=== PATIENT | female | born 1955 | race Caucasian/White ===

== ENCOUNTER → 2020-12-07 | Day surgery (SDC) | payer MEDICARE ==
[~2020-12-07] MED LIST: CELEBREX **OUT100 MG PO; DAILY VALUE1 EACH PO; FERROUS SULFA PO; OMEPRAZOLE40 MG PO; PROZAC20 MG PO; SYNTHROID25 MCG PO; XANAX0.25 MG PO
[2020-12-07 11:25] LABS: ALBUMIN 3.4 g/dL (3.4-5.0); BILIRUBIN - TOTAL 0.3 mg/dL (0.2-1.0); BUN/CREAT RATIO (CALC) 24.7 RATIO; CREATININE 0.81 mg/dL (0.51-0.95); GLOBULIN (CALCULATION) 3.5 g/dL; POTASSIUM 4.1 mmol/L (3.5-5.1); TOTAL PROTEIN 6.9 g/dL (6.4-8.2)
[2020-12-07 11:29] LABS: HCT 34.7 % (37.0-47.0); HGB 11.5 g/dl (12.5-16.0); MCH 29.6 pg (25.0-31.0); MCHC 33.1 g/dL (32.0-36.0); MCV 89.4 fL (78.0-100.0); MPV 9.6 fL (6.0-9.5); RBC 3.88 M/uL (4.20-5.40); RDW 13.6 % (11.5-14.0); WBC 6.4 K/uL (4.0-10.5)
== END | disposition home or self-care (01) ==
LOC: FAS 09:53
PROVIDERS: Surgery
DX: K22.2 Esophageal obstruction (principal); K29.70 Gastritis, unspecified, without bleeding; K21.9 Gastro-esophageal reflux disease without esophagitis; K58.9 Irritable bowel syndrome, unspecified; K25.9 Gastric ulcer, unspecified as acute or chronic, without hemorrhage or perforation; E78.00 Pure hypercholesterolemia, unspecified; E78.70 Disorder of bile acid and cholesterol metabolism, unspecified; F41.9 Anxiety disorder, unspecified; F32.9 Major depressive disorder, single episode, unspecified; Z20.822 Contact with and (suspected) exposure to COVID-19; Z88.8 Allergy status to other drugs, medicaments and biological substances; Z90.49 Acquired absence of other specified parts of digestive tract; Z79.899 Other long term (current) drug therapy; Z98.890 Other specified postprocedural states
CPT/HCPCS: 36415; 80053; 88305; C1726; J2250; J2704; J7120

== ENCOUNTER → 2021-01-05 | Day surgery (SDC) | payer MEDICARE ==
[~2021-01-05] VITALS: Ht 170.2 cm; Wt 92.5 kg
== END | disposition home or self-care (01) ==
LOC: FAS 08:51
DX: K22.2 Esophageal obstruction (principal); K21.9 Gastro-esophageal reflux disease without esophagitis; D64.9 Anemia, unspecified; F41.9 Anxiety disorder, unspecified; F32.9 Major depressive disorder, single episode, unspecified; E78.00 Pure hypercholesterolemia, unspecified; E89.0 Postprocedural hypothyroidism; M19.90 Unspecified osteoarthritis, unspecified site; K58.9 Irritable bowel syndrome, unspecified; Z88.5 Allergy status to narcotic agent; Z88.8 Allergy status to other drugs, medicaments and biological substances; Z79.899 Other long term (current) drug therapy
CPT/HCPCS: C1726; J2704; J7120

== ENCOUNTER 2021-03-12 09:42 | Emergency (ER) | payer MEDICARE ==
[2021-03-12 11:28] LABS: BILIRUBIN NEGATIVE (NEGATIVE); BLOOD NEGATIVE Ery/uL (NEGATIVE); CLARITY CLEAR (CLEAR); COLOR YELLOW (YELLOW); GLUCOSE (U) NORMAL (NORMAL); LEUKOCYTES TRACE Leu/uL (NEGATIVE); NITRITE NEGATIVE (NEGATIVE); PROTEIN NEGATIVE (NEGATIVE); UROBILINOGEN 0.2 mg/dL (0.2-1.0)
[2021-03-12 11:31] LABS: BUN/CREAT RATIO (CALC) 12.5 RATIO; CREATININE 0.88 mg/dL (0.51-0.95); POTASSIUM 3.6 mmol/L (3.5-5.1)
[2021-03-12 11:37] LABS: BASOPHIL 0.8 % (0-2); EOSINOPHIL 2.5 % (0-7); HCT 41.6 % (37.0-47.0); HGB 13.4 g/dl (12.5-16.0); LYMPHOCYTE 30.7 % (15-48); MCH 29.5 pg (25.0-31.0); MCHC 32.2 g/dL (32.0-36.0); MCV 91.6 fL (78.0-100.0); MONOCYTE 6.7 % (0-12); MPV 10.2 fL (6.0-9.5); NEUTROPHIL 58.3 % (41-80); NRBC 0; PLT 241 K/uL (150-400); PRO-BNP 255 pg/mL (<125); RBC 4.54 M/uL (4.20-5.40); RDW 13.4 % (11.5-14.0); WBC 8.8 K/uL (4.0-10.5)
[2021-03-12 12:03] LABS: SQUAMOUS EPITHELIAL CELLS RARE
== END 2021-03-12 12:36 | disposition home or self-care (01) ==
LOC: FER 09:42
PROVIDERS: Emergency Medicine
DX: R60.0 Localized edema (principal); R42 Dizziness and giddiness; E66.9 Obesity, unspecified; Z90.710 Acquired absence of both cervix and uterus; Z86.73 Personal history of transient ischemic attack (TIA), and cerebral infarction without residual deficits; Z88.5 Allergy status to narcotic agent; Z88.8 Allergy status to other drugs, medicaments and biological substances
CPT/HCPCS: 36415; 71045; 80048; 81001; 83880; 84484; 85025; 85379; 93005